=== PATIENT | male | born 1950 | race Caucasian/White ===

== ENCOUNTER 2016-11-09 20:30 | Emergency (ER) | payer OTHER ==
--- NOTE | ~2016-11-09 | EKG ---
PATIENT: BUDDY SOLOMON UNIT #: [id number] Ventricular Rate: 53 BPM Atrial Rate: 53 BPM P-R Interval: 164 ms QRS Duration: 106 ms Q-T Interval: 474 ms QTC Calculation(Bezet): 444 ms P Patterson: 28 degrees Calculated R Patterson: 41 degrees Calculated T Patterson: 51 degrees Diagnosis Line: Sinus bradycardia with sinus arrhythmia Diagnosis Line: Otherwise normal ECG Diagnosis Line: When compared with ECG of 18-APR-2009 07:32, Diagnosis Line: Sinus rhythm has replaced Junctional rhythm Diagnosis Line: Confirmed by KIMBER KING MD ([id number]) on 11/10/2016 Diagnosis Line: 10:09:05 PM INTERPRETING MD: CHRISTINE LUNA
--- NOTE | ~2016-11-09 | CR72 ---
[facility] A Service of [facility] RADIOLOGY TEXT RESULTS PATIENT: BUDDY SOLOMON LOCATION: [facility] : 54 UNIT #: [id number] AGE: [address]: Wali Harry DO SEX: M ORDER DR: [id number] [facility] [address] [place], [place] [address] [id number] E MR#: [id number] Acc #: [id number] NAME: BUDDY SOLOMON : 1950 SEX: M STUDY DATE/TIME: 11/09/2016 21:22 UNIT: [facility] ROOM: STUDY DESCRIPTION: CR Chest Single View Portable Attending Physician: Wali Harry D.O. Ordering Physician: Loretta Hernandez Pa-C MEDICAL IMAGING REPORT This report is preliminary unless electronic signature is present EXAM Frontal chest 11/09/2016 INDICATIONS 66-year-old male with left-sided chest pain and a cough for a week. Tobacco abuse years. TECHNIQUE Frontal chest compared with 04/18/2009. FINDINGS Partial obscuration of both lung apices by neck soft tissue artifact. Cardiac silhouette within normal limits. Vascularity normal. Lungs appear clear. No effusion or pneumothorax. IMPRESSION 1. Negative frontal chest. No significant change. Dictated by... Kervin Judge M.D. THIS IS AN ELECTRONICALLY VERIFIED REPORT Kervin Judge M.D. at 11/10/2016 11:41 AM JEREMIE/teddy TD: 11/10/2016 00:38 JOB #: [id number] MEDICAL IMAGING REPORT Page 1 of 1 COPY
[~2016-11-09 20:30] MED LIST: CIPRO PO; FLOMAX0.4 MG PO; IBUPROFEN PO; LISINOPRIL PO; PYRIDIUM PO; TYLOX 5/500 CAP1 CAP PO
== END 2016-11-09 22:11 | disposition left against medical advice (07) ==
LOC: CED 20:30
DX: S61.411A Laceration without foreign body of right hand, initial encounter (principal); R07.9 Chest pain, unspecified; I10 Essential (primary) hypertension; F17.210 Nicotine dependence, cigarettes, uncomplicated; Z23 Encounter for immunization; Z79.899 Other long term (current) drug therapy; Z88.5 Allergy status to narcotic agent; X58.XXXA Exposure to other specified factors, initial encounter
CPT/HCPCS: 71010; 90471; 90715; 93005; 96372; 99284

== ENCOUNTER 2017-02-17 20:35 | Inpatient (IN) | payer MEDICARE ==
[~2017-02-17] VITALS: Ht 182.9 cm; Wt 83.9 kg
--- NOTE | ~2017-02-17 | HP ---
Unit #: [id number] #: [id number] Patient: ANGEL SOLOMON [id number] [place] [address] [id number] I MR#: [id number] NAME: ANGEL SOLOMON. ROOM: 83 Age: 67 Sex: M Admission Date: 02/17/2017 : 1950 Attending Physician: Bebo Torres M.D. Admitting Physician: Bebo Torres M.D. Primary Care Physician: Primary Care Physician No HISTORY AND PHYSICAL History and physical completed on 02/17/2017. HISTORY OF PRESENT ILLNESS Angel is a 67-year-old male, admitted on 02/17/2017 to [facility] for detox from alcohol. PAST MEDICAL HISTORY 1. Asthma 2. Hypertension. 3. Benign prostatic hypertrophy. 4. Chronic obstructive pulmonary disease. PAST SURGICAL HISTORY None. SOCIAL HISTORY He smokes one pack of cigarettes daily, binge alcohol use, and denies any illegal drug use. FAMILY HISTORY Noncontributory. REVIEW OF SYSTEMS CONSTITUTIONAL: No fever or chills. HEENT: Denies any sore throat, ear pain or runny nose. CARDIOVASCULAR: Denies chest pain, irregular heart rhythm or palpitations. CHEST: Denies shortness of breath or cough. No hemoptysis. GASTROINTESTINAL: Denies nausea, vomiting, diarrhea or chronic constipation. ENDOCRINE: Denies history of increased thirst or urination. No recent significant weight loss or gain. GENITOURINARY: Denies dysuria, frequency, or hematuria. SKIN: Denies any rashes. HEMATOLOGIC: Denies history of increased bleeding or bruising. MUSCULOSKELETAL: Denies any hot, swollen joints. No generalized muscle pain. NEUROLOGIC: Denies problems with vision or speech. No frequent, severe headaches. No numbness, tingling or weakness in any extremities. Denies loss of bladder or bowel control. CURRENT MEDICATIONS 1. Proventil 2. Combivent Unit #: [id number] #: [id number] Patient: ANGEL SOLOMON 3. Trazodone 4. Ibuprofen 5. Lisinopril 6. Alfuzosin ALLERGIES No known drug allergies. PHYSICAL EXAMINATION GENERAL: Alert, oriented, no acute distress. VITAL SIGNS: Blood pressure 147/97, heart rate 59, temperature 98.4. HEIGHT: 6 feet 0 inches. WEIGHT: 185 pounds. SKIN: Warm and dry without rash or lesion. HEENT: Normocephalic. TMs not viewed. Oral and nasal passages clear. Conjunctivae clear. PERRLA. EOMs intact. NECK: Supple without lymphadenopathy or thyromegaly. HEART: Regular rate and rhythm without murmur. LUNGS: Clear. ABDOMEN: Soft, nontender. : Not done. EXTREMITIES: No evidence of cyanosis, clubbing or edema. Moves all without focal deficit. NEUROLOGICAL: Grossly within normal limits. Cranial Nerves: II: Visual chavira are intact. III, IV AND : Extraocular movements are intact. Pupils are equal, round and reactive to light. V: Facial sensation is grossly normal. VII: Facial movements and expression are normal. VIII: Auditory acuity grossly intact. IX, X: Uvula is midline. Phonation is normal. XI: Patient shrugs shoulders and turns head normally. XII: Tongue protrudes in the midline. Sensory and Motor Function: Sensory and motor sensation is grossly normal. Motor: moves all extremities well. Coordination: Gait is normal. Deep Tendon Reflexes: Intact. IMPRESSION 1. Psychiatric admission. 2. Hypertension. 3. Benign prostatic hypertrophy. 4. Chronic obstructive pulmonary disease. RECOMMENDATIONS Psychiatric, per psychiatrist. MEDICAL No contraindications to participating in facility's activities. MEDICAL PROGNOSIS Good. MEDICAL CONDITION Stable. Dictated by... Unit #: [id number] #: [id number] Patient: NEHAANGEL A.P.R.N. MJW/brynn TD: 02/19/2017 05:31 JOB #: [id number] HISTORY AND PHYSICAL Page 1 of 1 X LAMONT NAVARRO APRN X HISTORY AND PHYSICAL
--- NOTE | ~2017-02-17 | DS ---
Unit #: [id number] #: [id number] Patient: BUDDY SOLOMON [id number] [facility] [address] [place] [address] [id number] I MR#: [id number] NAME: BUDDY SOLOMON. ROOM: [facility] Age: 67 Sex: M Admission Date: 02/17/2017 : 1950 Discharge Date: 02/22/2017 Attending Physician: Bebo Torres M.D. Primary Care Physician: Primary Care Physician No DISCHARGE SUMMARY REASON FOR ADMISSION Mr. Crain is a 67-year-old man who reports a long history of drinking and difficulty maintaining sobriety. He denied suicidal ideation, intent, or plan and was admitted for stabilization. DIAGNOSTIC STUDIES LABORATORY RESULTS: CMP was within normal limits except for mild low random glucose of 151. CBC was unremarkable. HOSPITAL COURSE The patient was admitted and placed on the alcohol detox protocol. Home medications were confirmed by a call to his pharmacy and restarted. He was somewhat angry and irritable throughout the hospitalization and occasionally cooperative with nursing staff. This did improve as he reports discharge. On the date of discharge, he contracted for safety once again with intention to follow up to the [facility]. DISCHARGE DIAGNOSES AXIS I: Alcohol dependence with withdrawal, uncomplicated. AXIS II: No diagnosis. AXIS III: Hypertension and asthma. AXIS IV: AXIS V: DISCHARGE INSTRUCTIONS Follow up with the provider of choice through the [facility]. DISCHARGE MEDICATIONS None. CONDITION AT DISCHARGE Fair. PROGNOSIS Fair. DIET AND ACTIVITY Per primary care doctor. Unit #: [id number] #: [id number] Patient: BUDDY SOLOMON Dictated by... Angel Live/nati TD: 02/22/2017 13:11 JOB #: [id number] DISCHARGE SUMMARY Page 1 of 1 X Bebo Torres MD X DISCHARGE SUMMARY
--- NOTE | ~2017-02-17 | PN ---
Unit #: [id number] #: [id number] Patient: BUDDY SOLOMON [id number] [facility] [address] [place] [address] [id number] I MR#: [id number] NAME: BUDDY SOLOMON. ROOM: P183 Age: 67 Sex: M Admission Date: 02/17/2017 : 1950 Attending Physician: Bebo Torres M.D. Admitting Physician: Bebo Torres M.D. Primary Care Physician: Primary Care Physician Adina WALL PROGRESS NOTES DATE OF SERVICE 02/21/2017 DISCUSSION Mr. Solomon is up and about attending groups and activities today. He has iwzy-uy-tmuldrhj detox symptomatology. His mood continues to be irritable and somewhat spiteful. He is alert and fully oriented with no psychosis, confusion or disorientation. ASSESSMENT Alcohol dependence. PLAN Continue current treatment plan. Dictated by... Angel Live/fred TD: 02/23/2017 00:28 JOB #: [id number] [facility] PROGRESS NOTES Page 1 of 1 X Bebo Torres MD X PROGRESS NOTE
--- NOTE | ~2017-02-17 | PA ---
Unit #: [id number] #: [id number] Patient: BUDDY SOLOMON [id number] [facility] [address] [place] [address] [id number] I MR#: [id number] NAME: BUDDY SOLOMON. ROOM: [facility] Age: 67 Sex: M Admission Date: 02/17/2017 : 1950 Date of Assessment: 02/18/2017 Attending Physician: Bebo Torres M.D. Admitting Physician: Bebo Torres M.D. Primary Care Physician: Primary Care Physician No PSYCHIATRIC ASSESSMENT DATE OF SERVICE 02/18/2017. INFORMANTS The patient, partially reliable; OLOP, reliable. CHIEF COMPLAINT Alcoholism. HISTORY OF PRESENT ILLNESS Mr. Solomon is a 67-year-old man, who presented reporting a long history of drinking with difficulty maintaining and establishing sobriety. He was irritable and angry in the assessment center, but denied suicidal ideation, intent, or plan. He was admitted for alcohol detox. PAST PSYCHIATRIC HISTORY As noted the patient has extensive history of alcohol dependence. He has had attempts at sobriety in the past with minimal success in establishing sobriety. FAMILY PSYCHIATRIC HISTORY Noncontributory. SOCIAL HISTORY The patient is single and does have some supportive family. Further details will be obtained in his psychosocial assessment. PAST MEDICAL HISTORY Significant for history of untreated hypertension and asthma. MEDICATIONS Please see MAR. ALLERGIES No known medication allergies. SUBSTANCE USE HISTORY The patient reports a history of alcohol dependence as noted above. MENTAL STATUS EXAMINATION Mr. Solomon presented as a mildly disheveled man, who appeared his stated age. He was irritable and had difficulty to awake for the examination. His speech was soft, sparse, and occasionally mumbled. Musculoskeletal Unit #: [id number] #: [id number] Patient: BUDDY SOLOMON examination was calm. His mood was irritable with an angry affect. He was alert and fully oriented. Memory and concentration were fair. Thought processes were goal directed with no active psychosis. He denied active suicidal ideation, intent, or plan. Insight and judgment were fair. Fund of knowledge and abstraction were fair. ASSETS AND LIABILITIES The patient presents voluntarily for treatment and has medical insurance. Liabilities include difficulty maintaining sobriety and erratic psychosocial support. ADMITTING DIAGNOSES AXIS I: Alcohol dependence with withdrawal, uncomplicated, F10.230. AXIS II: No diagnosis. AXIS III: Hypertension and asthma. AXIS IV: AXIS V: PSYCHIATRIC PLAN The patient was admitted and placed on the alcohol detox protocol. His home medications will be confirmed by his pharmacy and restarted and he will enroll in dual diagnosis groups and activities. A physical examination and laboratory studies will be ordered and reviewed. TREATMENT GOALS Establishment of sobriety, improvement in insight, and improvement in coping skills. DISCHARGE PLANNING Follow up with community mental health resources for chemical dependence. ESTIMATED LENGTH OF STAY 5 days. Dictated by... Bebo Torres M.D. CATHIE/nati TD: 02/20/2017 03:00 JOB #: [id number] PSYCHIATRIC ASSESSMENT Page 1 of 1 X Bebo Torres MD X PSYCHIATRIC ASSESSMENT
[2017-02-20 11:28] LABS: BASOPHIL% 0.4 % (0-2.5); EOSINOPHIL# 0.1 X10e3 (0-0.7); EOSINOPHIL% 1.6 % (0.0-7.0); HEMATOCRIT 42.4 % (38.0-50.0); LYMPHOCYTE# 1.3 X10e3 (1.0-3.5); LYMPHOCYTE% 24.8 % (17.0-45.0); MEAN CELL VOLUME 84.2 FL (83-96); MEAN CORPUSCULAR HEMOGLOBIN 27.8 PG (28-34); MEAN PLATELET VOLUME 8.9 FL (6.5-11.5); MONOCYTE# 0.2 X10e3 (0-1.0); MONOCYTE% 3.4 % (3.0-12.0); NEUTROPHIL# 3.5 X10e3 (1.5-7.1); NEUTROPHIL% 69.8 % (40-75); PLATELET COUNT 183 X10e3 (140-420); RED BLOOD COUNT 5.03 X10e (3.90-5.60); RED CELL DISTRIBUTION WIDTH 14.1 % (11.0-15.5); WHITE BLOOD COUNT 5.1 X10e3 (4.0-10.5)
[2017-02-20 11:34] LABS: DIFF IND NO
[2017-02-20 11:39] LABS: ALBUMIN SERUM 3.9 g/dL (3.5-5.0); BILIRUBIN,TOTAL 0.9 mg/dL (0.2-2.0); BUN/CREATININE RATIO 22.22; CALCIUM SERUM 9.4 mg/dL (8.4-10.2); CREATININE SERUM 0.9 mg/dL (0.6-1.4); GLOM FILT RATE Estimated 89.3 mL/min (>60); POTASSIUM 3.8 mmol/L (3.5-5.1); PROTEIN TOTAL SERUM 7.3 g/dL (6.0-8.3)
== END 2017-02-22 12:30 | DRG 897 ==
LOC: P1E 23:06
PROVIDERS: Psychiatry & Neurology Psychiatry
PROC: HZ2ZZZZ Detoxification Services for Substance Abuse Treatment (ICD-10-PCS; principal; 2017-02-17)
DX: F10.230 Alcohol dependence with withdrawal, uncomplicated (principal); J44.9 Chronic obstructive pulmonary disease, unspecified; I10 Essential (primary) hypertension; J45.909 Unspecified asthma, uncomplicated; N40.0 Benign prostatic hyperplasia without lower urinary tract symptoms; F17.210 Nicotine dependence, cigarettes, uncomplicated
CPT/HCPCS: 80053; 85025; 86592